=== PATIENT | female | born 1945 | race Caucasian/White ===

== ENCOUNTER 2022-03-07 16:21 | Emergency (ER) | payer OTHER, MEDICAID ==
[~2022-03-07] VITALS: Ht 157.5 cm; Wt 49.9 kg
[2022-03-07 16:21] VITALS: BP_SYST 126
--- NOTE | 2022-03-07 16:21 | NUR ---
BROUGHT IN BY [facility] AND PLACED IN BED #6, TRIAGED. REPORT GIVEN TO MOE
--- NOTE | 2022-03-07 16:25 | NUR ---
RECEIVED PT FROM ARELIS RIVAS. PT STATES ANXIETY AND PALPABLE CHEST WALL PAIN, AFTER LEAVING A RESTAURANT. RESP E/U, ON R/A. NORMAL S1S2 NOTED. DENIES N/V/D/C. SKIN INTACT. PERIPHERAL PULSES NORMAL, NO EDEMA. SIDERAILS UP X2.
[2022-03-07 17:09] LABS: BASOPHILS # (AUTO) 0.1 K/uL (0.0-0.2); BASOPHILS % (AUTO) 0.7 % (0.0-2.0); EOSINOPHILS # (AUTO) 0.1 K/uL (0.0-0.4); EOSINOPHILS % (AUTO) 1.6 % (0.0-4.0); HEMATOCRIT 30.1 % (36-48); HEMOGLOBIN 9.9 g/dL (12.0-16.0); LYMPHOCYTES % (AUTO) 12.5 % (20.5-51.5); MEAN CORPUSCULAR HEMOGLOBIN 28 pg (27-31); MEAN CORPUSCULAR HGB CONC 33 % (32-36); MEAN CORPUSCULAR VOLUME 85 fL (79.0-98.0); MONOCYTES # (AUTO) 0.7 K/uL (0.0-1.0); MONOCYTES % (AUTO) 8.9 % (1.7-9.3); NEUTROPHILS # (AUTO) 6.3 K/uL (1.8-7.7); NEUTROPHILS % (AUTO) 76.3 % (40.0-70.0); PLATELET COUNT (AUTO) 156 K/uL (130-430); RED BLOOD CELL COUNT(AUTO) 3.55 MIL/uL (4.2-6.2); RED CELL DISTRIBUTION WIDTH 16.1 % (9.0-15.0); WHITE BLOOD COUNT (AUTO) 8.2 K/uL (4.8-10.8)
--- NOTE | 2022-03-07 17:12 | NUR ---
CXR COMPLETED. LABS COMPLETED.
[2022-03-07 17:35] LABS: ANION GAP 15 (5-15); CALCIUM 9.6 mg/dL (8.4-11.0); CHLORIDE 104 mmol/L (98-107); CREATININE 0.87 mg/dL (0.55-1.30); GLUCOSE 110 mg/dL (70-99); UREA NITROGEN, BLOOD 22 mg/dL (8-21)
[2022-03-07 17:42] LABS: ALANINE AMINOTRANSFERASE 27 U/L (12-78); ASPARTATE AMINOTRANSFERASE 16 U/L (10-37); TOTAL BILIRUBIN 0.2 mg/dL (0.0-1.0)
--- NOTE | 2022-03-07 18:20 | NUR ---
PT ELOPED. PT WALKED OUT BACK BAY DOOR, STOOD IN THE GRASS AND PEED. PT STARTED SMOKING A CIGARETTE AND STATED SHE IS LEAVING AMA. PT HAD NO IV ACCESS, WRISTBAND REMOVED.
--- NOTE | 2022-03-07 18:26 | NUR ---
DR. NELSON AND LUZ RN AWARE PT LEFT AMA.
== END 2022-03-07 18:22 | disposition left against medical advice (07) ==
LOC: SED 16:21
DX: R07.9 Chest pain, unspecified (principal); Z79.899 Other long term (current) drug therapy
CPT/HCPCS: 36415; 71045; 80053; 83880; 84484; 85025; 93005; 99285

== ENCOUNTER 2022-03-07 19:13 | Emergency (ER) | payer OTHER, MEDICAID ==
[~2022-03-07] VITALS: Ht 162.6 cm; Wt 61.2 kg
[2022-03-07 19:17] VITALS: BP_SYST 145
--- NOTE | 2022-03-07 20:20 | NUR ---
April rice in ED - 03/07/22 at 2240 by [email or web address] Patient left without being seen. GREGORY llamas
--- NOTE | 2022-03-07 20:20 | NUR ---
Patient eloped from facility. ER aware
--- NOTE | 2022-03-07 20:30 | NUR ---
PT ELOPED AT 20:30 OUTSIDE WAS INFORMED.
== END 2022-03-07 20:30 | disposition left against medical advice (07) ==
LOC: SED 19:13
DX: R07.9 Chest pain, unspecified (principal); Z79.899 Other long term (current) drug therapy
CPT/HCPCS: 36415; 84484; 93005; 99284

== ENCOUNTER 2022-03-07 22:16 | Emergency (ER) | payer OTHER, MEDICAID ==
[~2022-03-07] VITALS: Ht 149.9 cm; Wt 54.4 kg
[2022-03-07 22:22] VITALS: BP_SYST 140
--- NOTE | 2022-03-07 22:24 | NUR ---
PT HERE BIB [facility] FOUND [facility] [address] C/O ABD PAIN, PT DENIES N/V/D, DENIES DYSURIA. PER REPORT PT WAS HERE EARLIER D/T CHEST PAIN AND ELOPED. PT DENIES SOB. PMH:UNKNOWN, POOR HISTORIAN PT AAOX4, NO SOB NOTED AND NAD. PT AMBULATING WITH STEADY GAIT. PENDING MD CAMP
--- NOTE | 2022-03-07 23:15 | NUR ---
PT ASLEEP EASILY AROUSABLE, NAD. PENDING MD CAMP
--- NOTE | 2022-03-08 01:00 | NUR ---
Called patient 3x, no answer. Patient left without being seen. No further care provided. ER MD aware
== END 2022-03-08 01:00 | disposition left against medical advice (07) ==
LOC: SED 22:16
DX: R10.9 Unspecified abdominal pain (principal); Z53.21 Procedure and treatment not carried out due to patient leaving prior to being seen by health care provider